=== PATIENT | female | born 1955 | race Caucasian/White ===

== ENCOUNTER 2018-12-11 08:01 | Day surgery (SDC) | payer BC ==
[2018-12-11 08:43] VITALS: BMI 24.1
[2018-12-11 11:08] VITALS: BP 107/55; PULSE 65; TEMP 98.9
--- NOTE | 2018-12-14 17:23 | PATH ---
Surgical Pathology Report Patient Name: KUSH BARNES [facility]. Rec. #: [id number] /Age/Gender: 1955 (Age: 63) / F Account: [id number] Location: [facility]-ENDOSCOPY Taken: 12/11/2018 Received: 12/11/2018 Reported: 12/14/2018 Physicians: Starr Caraballo M.D. Specimen(s) Received A: RECTAL POLYP B: TRANSVERSE COLON POLYP Clinical History History of colon polyp Postoperative diagnosis: Polyps Final Diagnosis A. RECTAL POLYP, BIOPSY: HYPERPLASTIC POLYP. B. TRANSVERSE COLON POLYP, BIOPSY: COLONIC MUCOSA WITH REACTIVE LYMPHOID AGGREGATE IN THE LAMINA PROPRIA. Electronically Signed Rosaura Cadena M.D. Gross Description A. Received in formalin, labeled "biopsy rectal polyp" is a suresh, irregular portion of soft tissue measuring 0.5 cm. in greatest dimension. The specimen is submitted in toto in one cassette. B. Received in formalin, labeled "biopsy transverse colon polyp" is a suresh, irregular portion of soft tissue measuring 0.3 cm. in greatest dimension. The specimen is submitted in toto in one cassette. DL/12/11/2018 saudi12/11/2018
== END 2018-12-11 11:05 | disposition home or self-care (01) ==
LOC: JASU-ENDO 08:01
PROVIDERS: ATTEND Internal Medicine Gastroenterology
PROC: 0DBL8ZX Excision of Transverse Colon, Via Natural or Artificial Opening Endoscopic, Diagnostic (ICD-10-PCS; 2018-12-11)
PROC: 0DBP8ZX Excision of Rectum, Via Natural or Artificial Opening Endoscopic, Diagnostic (ICD-10-PCS; principal; 2018-12-11 11:30)
DX: Z12.11 Encounter for screening for malignant neoplasm of colon (principal); K62.1 Rectal polyp; K64.8 Other hemorrhoids; D12.3 Benign neoplasm of transverse colon; Z86.010 Personal history of colon polyps
CPT/HCPCS: 88305-TC

== ENCOUNTER 2022-01-29 04:19 | Day surgery (SDC) | payer BC ==
[2022-01-25 18:12] VITALS: BMI 23.1
[2022-01-29] MEDS ORDERED: BUPIVACAINE HCL/PF 0.5% (5MG/ML) 10 ML VIAL ONE (07:14)
[2022-01-29] MEDS ORDERED: LIDOCAINE HCL/PF 1% SDV 5ML VIAL ONE ×2 (07:14→07:39)
[2022-01-29] MEDS ORDERED: IOHEXOL 180 MG/1 ML ML IJ ONE (08:27)
[2022-01-29] MEDS ORDERED: BUPIVACAINE HCL/PF 0.5% (5MG/ML) 10 ML VIAL NR ONE (08:28)
[2022-01-29 09:18] VITALS: PULSE 67; TEMP 97.7
[2022-01-29 09:27] VITALS: BP 118/67
== END 2022-01-29 09:00 | disposition home or self-care (01) ==
LOC: JASU-SURG 04:19
PROVIDERS: ATTEND Pain Medicine Pain Medicine
PROC: BR14YZZ Fluoroscopy of Cervical Facet Joint(s) using Other Contrast (ICD-10-PCS; 2022-01-29)
PROC: 3E0T3BZ Introduction of Anesthetic Agent into Peripheral Nerves and Plexi, Percutaneous Approach (ICD-10-PCS; principal; 2022-01-29 08:00)
DX: M47.812 Spondylosis without myelopathy or radiculopathy, cervical region (principal)
CPT/HCPCS: 76000-TC-FY

== ENCOUNTER → 2022-03-05 | Day surgery (SDC) | payer BC ==
[2022-03-01 09:37] VITALS: BMI 23.1
[~2022-03-05] MED LIST: BUPIVACAINE HCL/PF 0.5% (5MG/ML) 10 ML VIAL IJ ONE; BUPIVACAINE HCL/PF 0.5% (5MG/ML) 10 ML VIAL ONE; LIDOCAINE HCL/PF 1% SDV 5ML VIAL ONE
[2022-03-05 18:10] VITALS: BP 127/66; PULSE 67; TEMP 97.5
== END | disposition home or self-care (01) ==
LOC: JASU-SURG 04:25
PROVIDERS: ATTEND Pain Medicine Pain Medicine
PROC: BR14YZZ Fluoroscopy of Cervical Facet Joint(s) using Other Contrast (ICD-10-PCS; 2022-03-05)
PROC: 3E0T3BZ Introduction of Anesthetic Agent into Peripheral Nerves and Plexi, Percutaneous Approach (ICD-10-PCS; principal; 2022-03-05 15:00)
DX: M47.812 Spondylosis without myelopathy or radiculopathy, cervical region (principal)
CPT/HCPCS: 76000-TC-FY

== ENCOUNTER 2022-04-12 03:56 | Day surgery (SDC) | payer BC ==
[2022-04-12 06:33] VITALS: BMI 22.3
[2022-04-12] MEDS ORDERED: LIDOCAINE HCL/PF 1% SDV 5ML VIAL ONE (07:34)
[2022-04-12] MEDS ORDERED: BUPIVACAINE HCL/PF 0.75% 10 ML VIAL ONE (07:34)
[2022-04-12] MEDS ORDERED: DEXAMETHASONE SOD PHOSPHATE 10 MG/1 ML VIAL ONE (07:35)
[2022-04-12] MEDS ORDERED: LIDOCAINE HCL/PF 2% SDV 5ML VIAL ONE (07:41)
[2022-04-12] MEDS ORDERED: BUPIVACAINE HCL/PF 0.25% (2.5MG/ML) 10 ML VIAL ONE (08:16)
[2022-04-12] MEDS ORDERED: DEXAMETHASONE SOD PHOSPHATE 10 MG/1 ML VIAL IVPUSH ONE (08:22)
[2022-04-12] MEDS ORDERED: LIDOCAINE 1% P/F 10 MG/ML VIAL INF ONE (08:22)
[2022-04-12] MEDS ORDERED: LIDOCAINE HCL 2% 100 MG/5 ML DISP.SYRIN NR ONE ×2 (08:23)
[2022-04-12] MEDS ORDERED: BUPIVACAINE HCL/PF 0.25% (2.5MG/ML) 10 ML VIAL IJ ONE ×2 (08:25)
[2022-04-12 09:22] VITALS: BP 123/74; PULSE 63; TEMP 98.3
== END 2022-04-12 09:23 | disposition home or self-care (01) ==
LOC: JASU-SURG 03:56
PROVIDERS: ATTEND Pain Medicine Pain Medicine
PROC: 3E0T3TZ Introduction of Destructive Agent into Peripheral Nerves and Plexi, Percutaneous Approach (ICD-10-PCS; principal; 2022-04-12 08:00)
PROC: BR14YZZ Fluoroscopy of Cervical Facet Joint(s) using Other Contrast (ICD-10-PCS; 2022-04-12 08:00)
DX: M47.812 Spondylosis without myelopathy or radiculopathy, cervical region (principal)
CPT/HCPCS: 76000-TC-FY; J1100

== ENCOUNTER 2023-10-03 11:54 | Emergency (ER) | payer BC, OTHER ==
[2023-10-03] MEDS ORDERED: ACETAMINOPHEN 325 MG TABLET (FP) PO ONE (12:02)
[2023-10-03 12:03] VITALS: BP 116/67; PULSE 100; RESP 16; TEMP 102.3; BMI 22.9
[2023-10-03] MEDS ORDERED: ACETAMINOPHEN 325 MG TABLET (FP) ONE (12:05)
== END 2023-10-03 13:00 | disposition home or self-care (01) ==
LOC: FER 11:54
DX: R50.9 Fever, unspecified (principal); J02.9 Acute pharyngitis, unspecified; R05.9 Cough, unspecified; R09.89 Other specified symptoms and signs involving the circulatory and respiratory systems; M79.10 Myalgia, unspecified site; U07.1 COVID-19; B34.9 Viral infection, unspecified
CPT/HCPCS: 0241U-QW; 99283-25